=== PATIENT | female | born 1970 | race Caucasian/White ===

== ENCOUNTER 2016-12-29 06:07 | Inpatient (IN) | payer OTHER ==
[~2016-12-29] VITALS: Ht 172.7 cm; Wt 102.5 kg
[~2016-12-29 06:07] MED LIST: CELE200C PO; LISI-167 PO; LORA10TA75 PO; TRAM50TA2 PO
[2016-12-29] MEDS ORDERED: LACTATED RINGERS 1,000 ML IV SCH (06:28)
[2016-12-29] MEDS ORDERED: ROPIvacaine/PF 0.2%, 20 ML ONE ×2 (06:34→10:37)
[2016-12-29] MEDS ORDERED: KETOROLAC 60 MG/2 ML ONE ×2 (06:34→10:37)
[2016-12-29] MEDS ORDERED: VANCOMYCIN 1,000 MG ONE (06:34)
[2016-12-29] MEDS ORDERED: EPINEPHRINE 1 MG/ML, 1ML ONE (06:35)
[2016-12-29] MEDS ORDERED: TRANEXAMIC ACID 100 MG/ML, 10ML ONE (06:36)
[2016-12-29 06:39] LABS: HCG UR OBC PASS
[2016-12-29 06:43] VITALS: BP 135/87
[2016-12-29] MEDS ORDERED: MIDAZOLAM 1 MG/ML, 2ML ONE ×2 (06:49→08:42)
[2016-12-29] MEDS ORDERED: FENTANYL PF 250 MCG/5ML ONE ×2 (06:49→08:42)
[2016-12-29] MEDS ORDERED: SCOPOLAMINE PATCH, 1.5MG PATCH.TD72 TD ONE (06:53)
[2016-12-29] MEDS ORDERED: CEFAZOLIN 1,000 MG ONE (07:08)
[2016-12-29] MEDS ORDERED: ONDANSETRON 2MG/ML, 2ML ONE ×2 (07:08→08:50)
[2016-12-29] MEDS ORDERED: DEXAMETHASONE 4 MG/ML, 1ML ONE (07:08)
[2016-12-29] MEDS ORDERED: PROPOFOL 10 MG/ML, 20ML ONE (07:08)
[2016-12-29] MEDS ORDERED: ROCURONIUM 10 MG/ML ONE (07:08)
[2016-12-29] MEDS ORDERED: KETAMINE 10 MG/ML, 20ML ONE (07:44)
[2016-12-29] MEDS ORDERED: HYDROmorphone 1 MG/ML, 1ML ONE ×3 (07:44→09:33)
[2016-12-29] MEDS ORDERED: ONDANSETRON 2MG/ML, 2ML IVPush PRN (08:00)
[2016-12-29] MEDS ORDERED: PROMETHAZINE 25 MG/ML, 1ML IV PRN (08:00)
[2016-12-29] MEDS ORDERED: OXYcodone 5 MG/5 ML ORAL.SOL UDC PO PRN (08:00)
[2016-12-29] MEDS ORDERED: ACETAMINOPHEN 325 MG TABLET PO PRN (08:00)
[2016-12-29] MEDS ORDERED: MEPERIDINE/PF 25MG/0.5ML IVPush PRN (08:00)
[2016-12-29] MEDS ORDERED: hydrALAzine 20 MG/ML, 1ML IV PRN (08:00)
[2016-12-29] MEDS ORDERED: LABETALOL 5MG/ML, 20ML IV PRN (08:00)
[2016-12-29] MEDS: D5%-0.45% NACL 1,000 ML IV SCH ×2 (08:48→16:48)
[2016-12-29] MEDS ORDERED: FENTANYL PF 100 MCG/2ML ONE (08:50)
[2016-12-29] MEDS ORDERED: OXYcodone 5 MG/5 ML ORAL.SOL UDC ONE (08:51)
[2016-12-29] MEDS: FENTANYL PF 100 MCG/2ML IV PRN ×2 (08:54→09:03)
[2016-12-29] MEDS: HYDROmorphone 1 MG/ML, 1ML IV PRN ×5 (08:56→09:41)
[2016-12-29] MEDS: PREGABALIN 75 MG CAPSULE PO SCH ×2 (09:00→20:00)
[2016-12-29] MEDS ORDERED: DOCUSATE 100 MG CAPSULE PO SCH (09:00)
[2016-12-29] MEDS ORDERED: BISACODYL 10 MG SUPP PR PRN (09:00)
[2016-12-29] MEDS ORDERED: PROMETHAZINE 25 MG/ML, 1ML IM PRN (09:00)
[2016-12-29] MEDS ORDERED: HYDROcodone/APAP 10/325 MG TABLET PO SCH (09:00)
[2016-12-29] MEDS ORDERED: ONDANSETRON 4 MG TABLET PO PRN (09:00)
[2016-12-29] MEDS ORDERED: SENNA/DOCUSATE TABLET PO PRN (09:00)
[2016-12-29] MEDS ORDERED: ACETAMINOPHEN 650 MG/20.3 ML UDC PO PRN (09:00)
[2016-12-29] MEDS ORDERED: ZOLPIDEM 5MG TABLET PO PRN (09:00)
[2016-12-29] MEDS ORDERED: ALUMINUM/MAG/SIMETHICONE 30 ML UDC PO PRN (09:00)
[2016-12-29] MEDS ORDERED: MAGNESIUM HYDROXIDE 8%, 30ML UDC PO PRN (09:00)
[2016-12-29] MEDS ORDERED: PROMETHAZINE 12.5 MG SUPP PR PRN (09:00)
[2016-12-29] MEDS ORDERED: HYDROcodone/APAP 10/325 MG TABLET PO PRN (09:00)
[2016-12-29] MEDS ORDERED: ONDANSETRON 2MG/ML, 2ML IV PRN (09:00)
[2016-12-29] MEDS ORDERED: DIPHENHYDRAMINE 50 MG CAPSULE PO PRN (09:00)
[2016-12-29] MEDS ORDERED: HYDROmorphone 1 MG/ML, 1ML IV PRN (09:00)
[2016-12-29] MEDS ORDERED: SCOPOLAMINE PATCH, 1.5MG PATCH.TD72 TD SCH (09:00)
[2016-12-29] MEDS ORDERED: OXYcodone IR 5MG TABLET PO PRN (09:00)
[2016-12-29] MEDS: MULTIVITAMINS/MINERALS TABLET PO SCH (09:00)
[2016-12-29] MEDS ORDERED: TRANEXAMIC ACID 2,000 MG in SODIUM CHLORIDE 0.9% 100 ML IVPB ONE (09:15)
[2016-12-29] MEDS: DIAZEPAM 5 MG TABLET PO PRN (12:45)
[2016-12-29] MEDS: HYDROcodone/APAP 10/325 MG TABLET PO SCH ×3 (13:00→21:09)
[2016-12-29] MEDS: TAMSULOSIN 0.4 MG CAP.ER.24H PO SCH (13:48)
[2016-12-29 14:23] VITALS: BP 121/70
[2016-12-29] MEDS: CEFAZOLIN PMX 2GM/50ML 50 ML IVPB SCH ×2 (15:36→23:08)
[2016-12-29] MEDS: ASPIRIN 81 MG TABLET EC PO SCH (17:46)
[2016-12-29 21:08] VITALS: BP 106/66
[2016-12-29] MEDS: DOCUSATE 100 MG CAPSULE PO SCH (21:11)
[2016-12-30] MEDS: D5%-0.45% NACL 1,000 ML IV SCH ×2 (00:48→08:48)
[2016-12-30 00:56] VITALS: BP 99/62
[2016-12-30] MEDS: HYDROcodone/APAP 10/325 MG TABLET PO SCH ×3 (01:22→08:52)
[2016-12-30 04:27] VITALS: BP 108/66
[2016-12-30] MEDS: DIAZEPAM 5 MG TABLET PO PRN (04:32)
[2016-12-30] MEDS ORDERED: DEXAMETHASONE 4 MG/ML, 1ML IVPush SCH (06:00)
[2016-12-30] MEDS: ASPIRIN 81 MG TABLET EC PO SCH (06:17)
[2016-12-30 07:21] VITALS: BP 102/68
[2016-12-30] MEDS: TAMSULOSIN 0.4 MG CAP.ER.24H PO SCH (08:52)
[2016-12-30] MEDS: PREGABALIN 75 MG CAPSULE PO SCH (08:52)
[2016-12-30] MEDS: MULTIVITAMINS/MINERALS TABLET PO SCH (08:52)
[2016-12-30] MEDS: DOCUSATE 100 MG CAPSULE PO SCH (08:52)
[2016-12-30] MEDS ORDERED: KETOROLAC 30 MG/1 ML IV SCH (09:00)
[2016-12-30] MEDS ORDERED: LISINOPRIL 10 MG TABLET PO SCH (09:00)
[2016-12-30 11:12] VITALS: BP 120/71
[2016-12-30] MEDS ORDERED: OXYC5CAP4 PO (12:02)
[2016-12-30] MEDS ORDERED: DIAZ5TAB PO (12:03)
== END 2016-12-30 12:12 | disposition home or self-care (01) | DRG 470 ==
LOC: ORIP 06:07 → 4NOR 10:03 → DCLOUNGE 12-30 11:45
PROVIDERS: ADMIT Orthopaedic Surgery; ATTEND Orthopaedic Surgery
PROC: 0SR902A Replacement of Right Hip Joint with Metal on Polyethylene Synthetic Substitute, Uncemented, Open Approach (ICD-10-PCS; principal; 2016-12-29 07:30)
DX: M16.11 Unilateral primary osteoarthritis, right hip (principal); I10 Essential (primary) hypertension; Z79.899 Other long term (current) drug therapy
CPT/HCPCS: 36415; 72170; 81025; 85014; 85018; 86850; 86900; C1713; J0171; J0690; J1100; J1170; J1885; J2250; J2405; J2704; J2795; J3010; J3370; C1776; J7120